=== PATIENT | male | born 1995 | race African-American/Black ===

== ENCOUNTER 2021-04-05 14:15 | Emergency (ER) | payer OTHER ==
[2021-04-05 14:32] VITALS: BP 127/65; TEMP 98.2; BMI 27.7
[2021-04-05 14:50] VITALS: PULSE 53
== END 2021-04-05 15:10 | disposition home or self-care (01) ==
LOC: FER 14:15
DX: S83.92XA Sprain of unspecified site of left knee, initial encounter (principal)
CPT/HCPCS: 73562-TC-LT-FY; 99284-25

== ENCOUNTER 2022-04-02 13:49 | Emergency (ER) | payer OTHER ==
[2022-04-02 14:01] VITALS: BP 128/63; PULSE 64; TEMP 98.4; BMI 27.7
[2022-04-02] MEDS ORDERED: IBUPROFEN 600 MG TABLET (FP) PO ONE ×2 (14:26→14:28)
== END 2022-04-02 14:49 | disposition home or self-care (01) ==
LOC: JERFT 13:49
DX: S03.00XA Dislocation of jaw, unspecified side, initial encounter (principal); X50.1XXA Overexertion from prolonged static or awkward postures, initial encounter
CPT/HCPCS: 99283-25